=== PATIENT | female | born 1935 | race Caucasian/White ===

== ENCOUNTER 2022-10-10 11:09 | Outpatient (CLI) | payer OTHER | END 2022-10-10 11:10 | disposition home or self-care (01) | LOC: MRI 11:09 | PROVIDERS: ATTEND Nurse Practitioner Family | DX: M47.26 Other spondylosis with radiculopathy, lumbar region (principal); M51.15 Intervertebral disc disorders with radiculopathy, thoracolumbar region; M51.37 Other intervertebral disc degeneration, lumbosacral region; M48.061 Spinal stenosis, lumbar region without neurogenic claudication | CPT/HCPCS: 72148 ==

== ENCOUNTER 2023-08-11 10:11 | Outpatient (CLI) | payer OTHER | END 2023-08-11 10:12 | disposition home or self-care (01) | LOC: RAD 10:11 | PROVIDERS: ATTEND Internal Medicine | DX: I69.191 Dysphagia following nontraumatic intracerebral hemorrhage (principal); R13.12 Dysphagia, oropharyngeal phase; R63.30 Feeding difficulties, unspecified | CPT/HCPCS: 74230 ==